=== PATIENT | female | born 1995 | race Caucasian/White ===

== ENCOUNTER 2023-06-02 10:19 | Outpatient (CLI) | payer BC, OTHER ==
[2023-06-02] MEDS ORDERED: ACETAMINOPHEN TAB 500 MG TAB PO STA (10:34)
--- NOTE | 2023-06-24 08:06 | P.MSEPDOC ---
Presenting Problems - Arrival Data Date of Arrival on Unit: 06/02/23 Time of Arrival on Unit: 10:19 Mode of Transport: Wheelchair - Complaint OB-Reason for Admission/Chief Complaint: Pain, Other Comment: Patient fell at home last night. Patient reports pelvic pain hurting to walk and move. Patient denies bleeding or loss of fluid, + movement Medical History - Information : 1 Para: 0 Term: 0 : 0 Abortions: Spontaneous or Elective: 0 Number of Living Children: 0 - Gestational Age Gestational Age by INDIO (wks/days): 34 Weeks and 6 Days Review of Systems - Review of Systems Constitutional: No problems Breast: No problems ENT: No problems Cardiovascular: No problems Respiratory: No problems Gastrointestinal: No problems Genitourinary: No problems Musculoskeletal: No problems Neurological: No problems Skin: No problems Medical Screen Scoring - Uterine Contractions Intensity: Absent Resting: Soft to palpation - Assessment - Baby A Baseline FHR: 145 Heart Rate - NICHD Category: Category I (Normal) NST: Reactive Physician Notification - Physician Notified Physician Notified Date: 06/02/23 Physician Notified Time: 10:30 Physician: Torri Herron Order Received: Yes - Notification Comment Comment: Tylenol 1000mg po now, ice to pelvis, monitor for an hour, if pain is better patient may discharge home Maternal Triage Index - Maternal Triage Index Presenting for scheduled procedure w/no complaint: No - Stat/Priority 1 Stat Priority 1: No - Urgent/Priority 2 Urgent Priority 2: No - Prompt/Priority 3 Prompt Priority 3: Yes Criteria Met for Priority 3: Called Dr Herron with report of patient falling at home last night. Patient c/o pelvic pain, denies bleeding or loss of fluid. Dr Herron coming in to see patient Disposition - Disposition OB Disposition: Discharge to home Discharge Date: 06/02/23 Discharge Time: 11:45 I agree with the RN Medical Screening Exam: Yes Case reviewed; plan agreed upon as documented in EMR&OBIX.: Yes Diagnosis: PAIN, UNSPECIFIED
== END 2023-06-02 11:45 | disposition home or self-care (01) ==
LOC: FBPOP 10:19
PROVIDERS: ATTEND Obstetrics & Gynecology
DX: O26.893 Other specified pregnancy related conditions, third trimester (principal); R52 Pain, unspecified; Z3A.34 34 weeks gestation of pregnancy
CPT/HCPCS: 59025; 99213

== ENCOUNTER 2023-07-13 15:55 | Inpatient (IN) | payer BC, OTHER ==
[2023-07-13] MEDS ORDERED: DINOPROSTONE 10 MG INSERT.ER VAGINAL ONE (16:19)
[2023-07-13] MEDS ORDERED: HYDROmorphone 1 MG/ML 1 ML SYRINGE IVP PRN (16:34)
[2023-07-14] MEDS: LACTATED RINGERS 1,000 ML IV SCH ×3 (06:20→12:09)
[2023-07-14] MEDS ORDERED: TRANEXAMIC 1,000 MG/100ML-NACL 1,000 MG in EMPTY BAG 1 BAG IV PRN (06:28)
[2023-07-14] MEDS ORDERED: CARBOPROST TROMETHAMINE 250 MCG/ML 1 ML AMP IM PRN (06:28)
[2023-07-14] MEDS ORDERED: LIDOCAINE 0.5% (PF) 5 MG/ML (50 ML SDV) SQ PRN (06:28)
[2023-07-14] MEDS ORDERED: miSOPROStoL 200 MCG TAB PO PRN (06:28)
[2023-07-14] MEDS ORDERED: METHYLERGONOVINE 0.2 MG/ML 1 ML AMP IM PRN (06:28)
[2023-07-14] MEDS ORDERED: OXYTOCIN 10 UNIT/ML 1 ML VIAL IM PRN (06:28)
[2023-07-14] MEDS ORDERED: TERBUTALINE 1 MG/ML VIAL SQ PRN (06:28)
[2023-07-14] MEDS ORDERED: OXYTOCIN 30 UNITS/500 ML NS 30 UNIT in SALINE 1 500ML.BAG IV SCH ×2 (06:30→17:30)
[2023-07-14 06:59] LABS: Basophils % (A) 0 %; Eosinophils # (A) 0.1 k/uL (0-0.7); Eosinophils % (A) 1 %; HCT 32.2 % (34.0-46.0); HGB 11.5 gm/dL (11.4-16.0); Lymphocytes # (A) 1.8 k/uL (1.0-4.8); Lymphocytes % (A) 18 %; MCH 29.1 pg (25.0-35.0); MCHC 35.6 g/dL (31.0-37.0); MCV 81.9 fL (80.0-100.0); Mean Platelet Volume 8.2; Monocytes # (A) 0.6 k/uL (0-1.0); Monocytes % (A) 6 %; Neutrophils # (A) 7.5 k/uL (1.3-7.7); Neutrophils % (A) 74 %; Platelet Count 220 k/uL (150-450); Poikilocytosis Slight; RBC 3.93 m/uL (3.80-5.40); RDW 14.8 % (11.5-15.5); WBC 10.1 k/uL (3.8-10.6)
[2023-07-14] MEDS ORDERED: ROPIVACAINE 5 MG/ML 30 ML VIAL ONE (11:47)
[2023-07-14] MEDS ORDERED: SODIUM CHLORIDE 0.9% 250 ML BAG ONE (11:47)
[2023-07-14] MEDS ORDERED: fentaNYL (PF) 50 MCG/ML 5 ML AMP ONE (11:47)
[2023-07-14] MEDS ORDERED: diphenhydrAMINE 50 MG CAP PO PRN (17:23)
[2023-07-14] MEDS ORDERED: diphenhydrAMINE 50 MG/ML 1 ML VIAL IVP PRN ×2 (17:23)
[2023-07-14] MEDS ORDERED: diphenhydrAMINE 25 MG CAP PO PRN (17:23)
[2023-07-14] MEDS ORDERED: BENZOCAINE/MENTHOL SPRAY 1 GM/SPRAY AEROSOL TOPICAL PRN (17:23)
[2023-07-14] MEDS ORDERED: ACETAMINOPHEN TAB 325 MG TAB PO PRN (17:23)
[2023-07-14] MEDS ORDERED: LANOLIN CREAM 5 GM TUBE TOPICAL PRN (17:23)
[2023-07-14] MEDS ORDERED: SIMETHICONE 80 MG CHEWABLE PO PRN (17:23)
[2023-07-14] MEDS ORDERED: ZOLPIDEM 5 MG TAB PO PRN (17:23)
[2023-07-14] MEDS ORDERED: HYDROCORTISONE 2.5% RECTAL CREAM 30 GM TUBE RECTAL PRN (17:23)
[2023-07-14] MEDS: IBUPROFEN 600 MG TAB PO PRN (17:56)
[2023-07-14] MEDS: SENNOSIDES-DOCUSATE SODIUM 1 EACH TAB PO SCH (21:04)
[2023-07-15] MEDS: IBUPROFEN 600 MG TAB PO PRN ×4 (00:42→23:48)
[2023-07-15 01:21] VITALS: RESP 16
[2023-07-15 01:48] LABS: Basophils % (A) 0 %; Eosinophils % (A) 0 %; HCT 28.1 % (34.0-46.0); Lymphocytes # (A) 1.4 k/uL (1.0-4.8); Lymphocytes % (A) 13 %; MCH 28.6 pg (25.0-35.0); MCHC 34.7 g/dL (31.0-37.0); MCV 82.6 fL (80.0-100.0); Mean Platelet Volume 8.3; Monocytes # (A) 0.7 k/uL (0-1.0); Monocytes % (A) 6 %; Neutrophils # (A) 8.9 k/uL (1.3-7.7); Neutrophils % (A) 79 %; Platelet Count 223 k/uL (150-450); WBC 11.2 k/uL (3.8-10.6)
[2023-07-15 01:53] LABS: HGB 9.7 gm/dL (11.4-16.0)
[2023-07-15 07:03] LABS: Basophils % (A) 0 %; Eosinophils # (A) 0.1 k/uL (0-0.7); Eosinophils % (A) 1 %; Lymphocytes # (A) 1.9 k/uL (1.0-4.8); Lymphocytes % (A) 18 %; MCH 28.4 pg (25.0-35.0); MCHC 34.5 g/dL (31.0-37.0); MCV 82.4 fL (80.0-100.0); Mean Platelet Volume 8.4; Monocytes # (A) 0.8 k/uL (0-1.0); Monocytes % (A) 7 %; Neutrophils # (A) 7.8 k/uL (1.3-7.7); Neutrophils % (A) 73 %; Platelet Count 202 k/uL (150-450); RBC 3.16 m/uL (3.80-5.40); WBC 10.8 k/uL (3.8-10.6)
--- NOTE | 2023-07-15 07:37 | P.HPOB ---
History of Present Illness H&P Date: 07/13/23 Chief Complaint: induction of labor 28-year-old presents at 40 weeks and 5 days for induction of labor. Her cervix is 1cm, thick, -2 station. She is not cheri. heart tones are category 1. Review of Systems All systems: negative Constitutional: Denies chills, Denies fever Eyes: denies blurred vision, denies pain Ears, nose, mouth and throat: Denies headache, Denies sore throat Cardiovascular: Denies chest pain, Denies shortness of breath Respiratory: Denies cough Gastrointestinal: Denies abdominal pain, Denies diarrhea, Denies nausea, Denies vomiting Genitourinary: Denies dysuria, Denies hematuria Musculoskeletal: Denies myalgias Integumentary: Denies pruritus, Denies rash Neurological: Denies numbness, Denies weakness Psychiatric: Denies anxiety, Denies depression Endocrine: Denies fatigue, Denies weight change Past Medical History Past Medical History: No Reported History History of Any Multi-Drug Resistant Organisms: None Reported Additional Past Surgical History / Comment(s): plastic surgery-bilateral ears Past Anesthesia/Blood Transfusion Reactions: No Reported Reaction Past Psychological History: Anxiety Smoking Status: Never smoker Past Alcohol Use History: None Reported Past Drug Use History: None Reported - Past Family History Mother Additional Family Medical History / Comment(s): AVM, Stroke, brain surgery Sister(s) Family Medical History: Asthma Medications and Allergies Allergies Allergy/AdvReac Type Severity Reaction Status Date / Time No Known Allergies Allergy Verified 07/13/23 16:19 Exam Osteopathic Statement: *. No significant issues noted on an osteopathic structural exam other than those noted in the History and Physical/Consult. Vital Signs Temp Pulse Resp BP Pulse Ox 07/15/23 04:00 98.9 F 117 H 16 105/56 97 07/15/23 00:00 98.7 F 122 H 16 124/82 99 07/14/23 23:00 97.7 F 138 H 18 115/71 96 07/14/23 19:29 97.9 F 120 H 16 122/59 07/14/23 18:59 110 H 16 119/58 07/14/23 18:20 140 H 16 123/63 07/14/23 18:05 153 H 16 124/64 08/24/23 17:50 133 H 16 115/78 07/14/23 17:35 110 H 16 121/73 07/14/23 17:20 120 H 16 102/64 Intake and Output 07/14/23 07/15/23 07/15/23 22:59 06:59 14:59 Output Total 1154 Balance -1154 Output: Urine 300 Estimated Blood Loss 400 Output, Quantitative 454 Blood Loss Other: # Voids 1 1 Heart: Regular rate and rhythm Lungs: Clear to auscultation bilaterally Abdomen: Soft, nontender Extremities: Negative Homans sign Results Result Diagrams: 07/15/23 05:15 Abnormal Lab Results - Last 24 Hours (Table) 07/15/23 07/15/23 Range/Units 01:01 05:15 WBC 11.2 H 10.8 H (3.8-10.6) k/uL RBC 3.40 L 3.16 L (3.80-5.40) m/uL Hgb 9.7 L D 9.0 L (11.4-16.0) gm/dL Hct 28.1 L 26.0 L (34.0-46.0) % Neutrophils # 8.9 H 7.8 H (1.3-7.7) k/uL Assessment and Plan (1) Encounter for induction of labor Current Visit: Yes Status: Acute Code(s): Z34.90 - ENCNTR FOR SUPRVSN OF NORMAL , UNSP, UNSP TRIMESTER SNOMED Code(s): 951266700 Plan: 1. Induction of labor with Cervidil tonight and then Pitocin and amniotomy in the morning.
--- NOTE | 2023-07-15 07:39 | P.PROBDLV ---
Vaginal Delivery Note - . Vaginal Delivery Note: 28-year-old presents at 40 weeks and 5 days for induction of labor. Her cervix is 1cm, thick, -2 station. She is not cheri. heart tones are category 1. Cervidil was removed 12 hours later she was 1-2 cm dilated, 70% effaced, -2 station. She is cheri irregularly. Amniotomy was performed at 7:07 AM and clear fluid noted. When she was uncomfortable she did get an epidural. Cervix was completely dilated structure 1600. She pushed, and de livered a viable female over intact perineum under epidural anesthesia at 1657. Head delivered OA, anterior shoulder delivered gentle downward guidance by posterior shoulder and rest of body. Nose and mouth bulb suctioned, cord clamped and cut, placed mother's abdomen. Apgars 8, 9, weight 9 lbs. 4 oz. Placenta delivered spontaneously, intact with three-vessel cord at 1701. Vagina, cervix, perineum inspected. Second-degree midline laceration repaired with 3-0 Vicryl. Estimated blood loss 200 mL. Mother and baby in stable condition.
--- NOTE | 2023-07-15 07:43 | P.DS ---
Providers Date of admission: 07/13/23 15:55 Expected date of discharge: 07/15/23 Attending physician: Torri Herron Primary care physician: Stated None - Discharge Diagnosis(es) (1) Encounter for induction of labor Current Visit: Yes Status: Resolved (2) Status post normal vaginal delivery Current Visit: Yes Status: Acute Hospital Course: Patient presented for induction of labor. She underwent a 2-stage induction of labor and normal vaginal delivery. course was uneventful. She denies nausea, vomiting, chest pain, shortness of breath or calf pain. She'll be discharged home day #1 in stable condition to follow-up with me in 6 weeks. Plan - Discharge Summary New Discharge Prescriptions: New Ibuprofen [Motrin] 600 mg PO Q6HR PRN #30 tab PRN Reason: Mild Pain Or Fever >= 100.5 Discharge Medication List Ibuprofen [Motrin] 600 mg PO Q6HR PRN #30 tab 07/15/23 [Rx] Follow up Appointment(s)/Referral(s): Torri Herron DO [Doctor of Osteopathic Medicine] - 08/24/23 10:45 am Discharge Disposition: HOME SELF-CARE
[2023-07-15] MEDS: SENNOSIDES-DOCUSATE SODIUM 1 EACH TAB PO SCH ×2 (08:14→20:50)
[2023-07-16 01:20] VITALS: TEMP 98.7
[2023-07-16] MEDS: IBUPROFEN 600 MG TAB PO PRN (06:15)
[2023-07-16 09:14] VITALS: BP 138/73; PULSE 57
[2023-07-16] MEDS: SENNOSIDES-DOCUSATE SODIUM 1 EACH TAB PO SCH (09:34)
== END 2023-07-16 10:00 | disposition home or self-care (01) | DRG 807 ==
LOC: 4FBP 15:55
PROVIDERS: ADMIT Obstetrics & Gynecology; ATTEND Obstetrics & Gynecology
PROC: 3E0P7VZ Introduction of Hormone into Female Reproductive, Via Natural or Artificial Opening (ICD-10-PCS; 2023-07-13)
PROC: 0KQM0ZZ Repair Perineum Muscle, Open Approach (ICD-10-PCS; principal; 2023-07-14)
PROC: 10907ZC Drainage of Amniotic Fluid, Therapeutic from Products of Conception, Via Natural or Artificial Opening (ICD-10-PCS; principal; 2023-07-14)
PROC: 10E0XZZ Delivery of Products of Conception, External Approach (ICD-10-PCS; principal; 2023-07-14)
PROC: 3E033VJ Introduction of Other Hormone into Peripheral Vein, Percutaneous Approach (ICD-10-PCS; principal; 2023-07-14)
DX: O48.0 Post-term pregnancy (principal); O70.1 Second degree perineal laceration during delivery; Z86.59 Personal history of other mental and behavioral disorders; Z28.310 Unvaccinated for COVID-19; Z3A.40 40 weeks gestation of pregnancy; Z37.0 Single live birth
CPT/HCPCS: 85025; 86850; 86900; 86901